=== PATIENT | male | born 1965 | race Caucasian/White ===

== ENCOUNTER → 2023-09-14 15:07 | Outpatient (CLI) | payer MEDICARE, MEDICAID, SELFPAY ==
--- NOTE | 2023-09-14 09:45 | DI.RAD_ITS ---
Exam(s) XR FOOT RT COMPLETE EXAM: XR FOOT RT COMPLETE CLINICAL HISTORY: Pain in right foot.hammertoe,m20.41. TECHNIQUE: 2D digital imaging was performed. Three views. COMPARISON: CR XR FOOT LT COMPLETE from 09/14/2023 FINDINGS: BONES: No acute fracture is present. No bony destructive lesion is seen. JOINTS: No dislocation present. Hammertoe deformity 2nd toe. Minimal degenerative changes. SOFT TISSUE: Normal. IMPRESSION: Hammertoe deformity 2nd toe. DATA REPOSITORY: RADIATION DOSE DELIVERED:
--- NOTE | 2023-09-14 09:45 | DI.RAD_ITS ---
Exam(s) XR FOOT LT COMPLETE EXAM: XR FOOT LT COMPLETE CLINICAL HISTORY: Pain in left foot,hammers toe, m20.42. TECHNIQUE: 2D digital imaging was performed. Three views. COMPARISON: No exams were available for comparison FINDINGS: BONES: No acute fracture is present. No bony destructive lesion is seen. JOINTS: No dislocation present. No significant degenerative changes. Mild hammertoe deformity of t he 2nd toe. SOFT TISSUE: Normal. IMPRESSION: Mild hammertoe deformity of the 2nd toe. DATA REPOSITORY: RADIATION DOSE DELIVERED:
--- OUTSIDE RECORDS SUMMARY | 2023-09-14 15:11 | XMS_ITS | Continuity of Care Document ---
Author Name Unknown Organization [facility] Address [address] [place] [address] Care Team Providers Care Metal Cut Off Saw Tender Name Role Phone Emily Stein Primary Care Physician [phone] Encounter [facility] Date(s): 08/25/22 - 08/25/22 [facility] [address] [place] [address] Discharge Disposition: Home or Self Care Attending Physician: Jose Alberto Goodwin Admitting Physician: Jose Alberto Goodwin Referring Physician: Jose Alberto Goodwin Allergies, Adverse Reactions, Alerts No Known Medication Allergies Assessment and Plan Future Appointments Future Scheduled Tests Laboratory* Lipid Panel 01/23/23 Immunizations Given and Recorded Vaccine Date Status Refusal Reason influenza virus vaccine, live 08/10/21 Recorded influenza virus vaccine, live 09/11/19 Recorded influenza virus vaccine, live 1 09/19/18 Recorded influenza virus vaccine, live 09/14/17 Recorded SARS-CoV-2 (COVID-19) mRNA-1273 vaccine 03/30/21 R ecorded SARS-CoV-2 (COVID-19) mRNA-1273 vaccine 02/28/21 R ecorded tetanus/diphth/pertuss (Tdap) adult/adol 2 11/27/19 Recorded tetanus/diphth/pertuss (Tdap) adult/adol 07/30/11 Recorded influenza virus vaccine, inactivated 09/28/16 Marlon rded influenza virus vaccine, inactivated 09/18/15 Marlon rded influenza virus vaccine, inactivated 09/14/13 Marlon rded influenza virus vaccine, inactivated 08/14/12 Marlon rded influenza virus vaccine, inactivated 08/27/11 Marlon rded influenza virus vaccine, inactivated 10/13/10 Marlon rded tetanus-diphth toxoids (Td) adult/adol 03/02/05 Re corded 1Result Comment: hospital supply 2Result Comment: skin cleansed Medications !-Augmentin 875 mg-125 mg oral tablet amoxicillin (as trihydrate) 1 tab, Oral, every 12 hr, # 14 tab, 0 Refill(s), Pharmacy: [facility] #58 Start Date: 05/18/22 Stop Date: 05/25/22 Status: Ordered acetaminophen 500 mg oral tablet 1,000 mg = 2 tab, TAKE TWO TABLETS BY MOUTH EVERY 8 HOURS NEEDED Start Date: 05/03/22 Status: Ordered Albuterol (Eqv-ProAir HFA) 90 mcg/inh inhalation aerosol INHALE TWO PUFFS BY MOUTH EVERY 4 HOURS Start Date: 05/03/22 Status: Ordered alfuzosin 10 mg oral tablet, extended release 10 mg = 1 tab, Oral, Daily, after meal, # 90 tab, 3 Refill(s), Pharmacy: [facility] #[facility] Start Date: 08/04/22 Status: Ordered alfuzosin 10 mg oral tablet, extended release TAKE ONE TABLET BY MOUTH EVERY DAY AFTER MEALS Start Date: 05/03/22 Status: Ordered amoxicillin 500 mg oral capsule TAKE ONE CAPSULE BY MOUTH EVERY 8 HOURS UNTIL GONE Start Date: 06/18/22 Status: Ordered aspirin 81 mg oral delayed release tablet 81 mg = 1 tab, Oral, Daily, # 30 tab, 0 Refill(s) Start Date: 05/03/22 Status: Ordered atorvastatin 40 mg oral tablet 40 mg = 1 tab, Oral, Daily, # 90 tab, 0 Refill(s), Pharmacy: [facility] #[facility] Start Date: 08/25/22 Status: Ordered Debrox 6.5% otic solution 5 drops, Ear-Both, BID, Instill 5 drops in affected ear(s) up to twice a day for 5 days to loosen wax, # 30 mL, 1 Refill(s), Pharmacy: [facility] #[facility] Start Date: 06/30/22 Status: Ordered diclofenac 1% topical gel See Instructions, APPLY 2 GRAMS TOPICALLY TO AFFECTED AREA(S) THREE TIMES A DAY NEEDED, # 100 g,3 Refill(s), Pharmacy: [facility] #[facility] Start Date: 07/19/22 Status: Ordered Enbrel SureClick 50 mg/mL subcutaneous solution 50 mg =, Subcutaneous, every week, # 3.92 mL, 0 Refill(s) Start Date: 05/03/22 Status: Ordered Flovent HFA 110 mcg/inh inhalation aerosol INHALE ONE PUFF BY MOUTH TWICE A DAY Start Date: 05/03/22 Status: Ordered folic acid 1 mg oral tablet 1 mg = 1 tab, Oral, Daily, TAKE ONE TABLET BY MOUTH EVERY DAY, # 90 tab, 3 Refill(s), Pharmacy: [facility] Start Date: 08/05/22 Status: Ordered HYDROcodone-acetaminophen 5 mg-325 mg oral tablet TAKE ONE TABLET BY MOUTH EVERY 6 HOURS NEEDED Start Date: 06/18/22 Status: Ordered ibuprofen 400 mg oral tablet TAKE ONE TABLET BY MOUTH EVERY 6 HOURS NEEDED Start Date: 05/03/22 Status: Ordered loratadine 10 mg oral tablet 10 mg = 1 tab, Oral, Daily, TAKE ONE TABLET BY MOUTH EVERY DAY, # 90 tab, 3 Refill(s), Pharmacy: [facility] Start Date: 08/04/22 Status: Ordered Myrbetriq 25 mg oral tablet, extended release TAKE ONE TABLET BY MOUTH EVERY DAY Start Date: 05/03/22 Status: Ordered Myrbetriq 50 mg oral tablet, extended release 50 mg = 1 tab, Oral, Daily, do not crush or chew, # 30 tab, 0 Refill(s) Start Date: 05/03/22 Status: Ordered omeprazole 40 mg oral delayed release capsule 1 cap, Oral, Daily, # 30 cap, 2 Refill(s), Pharmacy: [facility] #[facility] Start Date: 08/16/22 Status: Ordered Oyster Shell Calcium with Vitamin D 500 mg-5 mcg (200 intl units) oral tablet 1 tab, Oral, BID, # 60 tab, 3 Refill(s), Pharmacy: [facility] Start Date: 06/01/22 Status: Ordered traZODone 50 mg oral tablet 2 tab, Oral, every night at bedtime, PRN NEEDED, # 180 tab, 1 Refill(s), Pharmacy: [facility] Start Date: 08/05/22 Status: Ordered Problem List Condition Confirmation Course Effective Dates Status H ealth Status Informant Acquired hammer toe of right foot Confirmed Active Allergic rhinitis Confirmed Active Allergic rhinitis due to pollen Confirmed Active Anemia Confirmed Active Carpal tunnel syndrome of left wrist Confirmed Active Depressive disorder Confirmed Active Gastroesophageal reflux disease Confirmed Active Hyperlipidemia Confirmed Active Insomnia Confirmed Active Left knee pain Confirmed Active Migraine Confirmed Active Osteoarthritis Confirmed Active Overweight Confirmed Active Primary insomnia Confirmed Active Psoriasis Confirmed Active Thrombocytopenic disorder Confirmed Active Procedures Procedure Date Related Diagnosis Body Site Status Arthroscopy of knee 1 12/08/21 Com pleted Arthroscopy of knee 2 07/24/20 Com pleted orthopedic surgery 3 12/20/12 Comp leted Open carpal tunnel release 4 Completed Procedure on elbow Comple mari 1left 2R knee scope w/PLM 3Left hand hardware removal 5th metacarpal, 12/21/12 4bilateral Social History Social History Type Response Tobacco Never tobacco user T obacco Use:. Sex Male Patient Care team information Personnel Name: Emily Stein MD Address: Address: [facility] [place], [place] [address]
--- OUTSIDE RECORDS SUMMARY | 2023-09-14 15:11 | XMS_ITS | Continuity of Care Document ---
Author Name Unknown Organization [facility] Address [address] [place] [address] Care Team Providers Care Molded Goods Spot Picker Name Role Phone Emily Steni Primary Care Physician [phone] Encounter [facility] Date(s): 08/17/22 - 08/17/[address] [address] Discharge Disposition: Home or Self Care Attending Physician: Emily Stein MD Admitting Physician: Emily Stein MD Referring Physician: Emily Stein MD Allergies, Adverse Reactions, Alerts No Known Medication Allergies Assessment and Plan Future Appointments Immunizations Given and Recorded Vaccine Date Status [...] hr, # 14 tab, 0 Refill(s), Pharmacy: [facility] Start Date: 05/18/22 Stop Date: 05/25/22 [...] meal, # 90 tab, 3 Refill(s), Pharmacy: [facility] #58 Start Date: 08/04/22 Status: Ordered alfuzosin [...] 0 Refill(s) Start Date: 05/03/22 Status: Ordered Debrox 6.5% otic solution 5 drops, Ear-Both, BID, Instill 5 drops in affected ear(s) up to twice a day for 5 days to loosen wax, # 30 mL, 1 Refill(s), Pharmacy: [facility] #58 Start Date: 06/30/22 Status: Ordered diclofenac 1% topical gel See Instructions, APPLY 2 GRAMS TOPICALLY TO AFFECTED AREA(S) THREE TIMES A DAY NEEDED, # 100 g,3 Refill(s), Pharmacy: [facility] #58 Start Date: 07/19/22 Status: Ordered Enbrel [...] DAY, # 90 tab, 3 Refill(s), Pharmacy: [facility] #58 Start Date: 08/05/22 Status: Ordered HYDROcodone-acetaminophen [...] DAY, # 90 tab, 3 Refill(s), Pharmacy: [facility] #58 Start Date: 08/04/22 Status: Ordered Myrbetriq [...] Daily, # 30 cap, 2 Refill(s), Pharmacy: [facility] #58 Start Date: 08/16/22 Status: Ordered Oyster Shell Calcium with Vitamin D 500 mg-5 mcg (200 intl units) oral tablet 1 tab, Oral, BID, # 60 tab, 3 Refill(s), Pharmacy: [facility] #58 Start Date: 06/01/22 Status: Ordered traZODone 50 mg oral tablet 2 tab, Oral, every night at bedtime, PRN NEEDED, # 180 tab, 1 Refill(s), Pharmacy: [facility] #58 Start Date: 08/05/22 Status: Ordered Problem List Condition Effective Dates Status Health Status Inform ant Acquired hammer toe of right foot(Confirmed) Active Allergic rhinitis(Confirmed) Active Allergic rhinitis due to pollen(Confirmed) Active Anemia(Confirmed) Active Carpal tunnel syndrome of le ft wrist(Confirmed) Active Depressive disorder(Confirmed) Active Gastroesophageal reflux disease(Confirmed) Active Hyperlipidemia(Confirmed) Active Insomnia(Confirmed) Active Left knee pain(Confirmed) Active Migraine(Confirmed) Active Osteoarthritis(Confirmed) Active Overweight(Confirmed) Active Primary insomnia(Confirmed) Active Psoriasis(Confirmed) Active Thrombocytopenic disorder(Confirmed) Active Procedures Procedure Date Related Diagnosis Body Site Status Arthroscopy of knee 1 12/08/21 Com pleted Arthroscopy of knee 2 07/24/20 Com pleted orthopedic surgery 3 12/20/12 Comp leted Open carpal tunnel release 4 Completed Procedure on elbow Comple mari 1left 2R knee scope w/PLM 3Left hand hardware removal 5th metacarpal, 12/21/12 4bilateral Results Laboratory List Name Date Automated Diff 08/17/22 CBC w/ Diff 08/17/22 Comprehensive Metabolic Panel (CMP) 08/17 Lipid Panel 08/17/22 Most recent to oldest [Reference Range]: 1 WBC [5.0-10.0 x10^3/mcL] 5.8 x10^3/mcL (08/17/22 8:14 AM) RBC [4.6-6.0 x10^6/mcL] 4.7 x10^6/mcL (08/17/22 8:14 AM) Neutro Auto [40.0-75.0 %] 44.4 % (08/17/22 8:14 AM) Lymph Auto [20.0-50.0 %] 44.0 % (08/17/22 8:14 AM) George Auto [2.0-15.0 %] 9.2 % (08/17/22 8:14 AM) Basophil Auto [0.0-1.0 %] 0.5 % (08/17/22 8:14 AM) BUN [7-18 mg/dL] 16 mg/dL (08/17/22 8:14 AM) Cholesterol Total [50-200 mg/dL] 220 mg/ dL *HI* (08/17/22 8:14 AM) LDL [0-130 mg/dL] 157 mg/dL *HI* (08/17/22 8:14 AM) Glucose Level [74-106 mg/dL] 105 mg/dL (08/17/22 8:14 AM) Potassium Level [3.5-5.1 mmol/L] 4.0 mmo l/L (08/17/22 8:14 AM) MCV [80.0-103.0 fL] 89.7 fL (08/17/22 8:14 AM) HDL [40-60 mg/dL] 47 mg/dL (08/17/22 8:14 AM) AST [15-37 unit/L] 20 unit/L (08/17/22 8:14 AM) ALT [14-59 unit/L] 27 unit/L (08/17/22 8:14 AM) MCHC [31.0-35.0 g/dL] 33.2 g/dL (08/17/22 8:14 AM) Sodium Level [136-145 mmol/L] 137 mmol/L (08/17/22 8:14 AM) Hct [41.0-51.0 %] 41.9 % (08/17/22 8:14 AM) Triglycerides [0-150 mg/dL] 82 mg/dL (08/17/22 8:14 AM) Calcium Level [8.5-10.1 mg/dL] 9.5 mg/dL (08/17/22 8:14 AM) Albumin Level [3.4-5.0 g/dL] 4.2 g/dL (08/17/22 8:14 AM) Protein Total [6.4-8.2 g/dL] 8.2 g/dL (08/17/22 8:14 AM) MCH [26.0-32.0 pg] 29.8 pg (08/17/22 8:14 AM) Neutro Absolute 2.6 x10^3/mcL *NA* (08/17/22 8:14 AM) Bilirubin Total [0.2-1.0 mg/dL] 0.7 mg/d L (08/17/22 8:14 AM) Hgb [14.0-18.0 g/dL] 13.9 g/dL *LOW* (08/17/22 8:14 AM) Alk Phos [46-146 unit/L] 57 unit/L (08/17/22 8:14 AM) Platelets [130-450 x10^3/mcL] 114 x10^3/ mcL *LOW* (08/17/22 8:14 AM) CO2 [21-32 mmol/L] 28 mmol/L (08/17/22 8:14 AM) eGFR Non-AA [>=60] 87 (08/17/22 8:14 AM) eGFR AA [>=60] 87 (08/17/22 8:14 AM) Chloride Level [98-107 mmol/L] 102 mmol/ L (08/17/22 8:14 AM) RDW-CV [11.5-17.0 %] 13.3 % (08/17/22 8:14 AM) Imm Gran Auto [0.0-0.9 %] 0.2 % (08/17/22 8:14 AM) Creatinine Level [0.70-1.30 mg/dL] 1.01 mg/dL (08/17/22 8:14 AM) Anion Gap [8-16 mmol/L] 7 mmol/L *LOW* (08/17/22 8:14 AM) Eos, Auto [1.0-6.0 %] 1.7 % (08/17/22 8:14 AM) Social History Social History Type Response Tobacco Never tobacco user T obacco Use:. Sex Male Patient Care team information Personnel Name: Emily Stein MD Address: Address: [place], [place] [address]
--- OUTSIDE RECORDS SUMMARY | 2023-09-14 15:11 | XMS_ITS | Continuity of Care Document ---
Author Name Unknown Organization [facility] Address [address] [place] [address] Care Team Providers Care Private Investigator Surveillance Name Role Phone Emily Stein Primary Care Physician [phone] Encounter [facility] Date(s): 04/27/23 - 04/27/23 [facility] [address] [place] [address] Discharge Disposition: Home Allergies, Adverse Reactions, Alerts No Known Medication [...] hospital supply 2Result Comment: skin cleansed Medications acetaminophen 500 mg oral tablet 1,000 mg = 2 tab, TAKE TWO TABLETS BY MOUTH EVERY 8 HOURS NEEDED Start Date: 05/03/22 Status: Ordered Albuterol (Eqv-ProAir HFA) 90 mcg/inh inhalation aerosol 2 puffs, Inhale, every 4 hr, PRN as needed for wheezing, INHALE TWO PUFFS BY MOUTH EVERY 4 HOURS, #8.5 g, 3 Refill(s), Pharmacy: [facility] #58 Start Date: 04/04/23 Status: Ordered alfuzosin 10 mg oral tablet, extended release 10 mg = 1 tab, Oral, Daily, after meal, # 90 tab, 3 Refill(s), Pharmacy: [facility] #58 Start Date: 08/04/22 Status: Ordered alfuzosin 10 mg oral tablet, extended release TAKE ONE TABLET BY MOUTH EVERY DAY AFTER MEALS Start Date: 05/03/22 Status: Ordered aspirin 81 mg oral delayed release tablet 81 mg = 1 tab, Oral, Daily, # 30 tab, 0 Refill(s) Start Date: 05/03/22 Status: Ordered atorvastatin 40 mg oral tablet 40 mg = 1 tab, Oral, Daily, # 90 tab, 3 Refill(s), Pharmacy: [facility] #58 Start Date: 11/01/22 Status: Ordered benzonatate 100 mg oral capsule 100 mg = 1 cap, Oral, BID, # 20 cap, 0 Refill(s), Pharmacy: [facility] #58 Start Date: 02/08/23 Stop Date: 02/18/23 Status: Ordered Ciprodex 0.3%-0.1% otic suspension 4 drops, Ear-Both, BID, # 7.5 mL, 0 Refill(s), Pharmacy: [facility] #58 Start Date: 12/01/22 Stop Date: 12/08/22 Status: Ordered Debrox 6.5% otic solution 5 drops, Ear-Both, BID, Instill 5 drops in affected ear(s) up to twice a day for 5 days to loosen wax, # 30 mL, 1 Refill(s), Pharmacy: [facility] #58 Start Date: 06/30/22 Status: Ordered diclofenac 1% topical gel 2 g, Topical, TID, PRN NEEDED, # 100 g, 6 Refill(s), Pharmacy: [facility] #58 Start Date: 02/28/23 Status: Ordered Enbrel SureClick 50 mg/mL subcutaneous solution 50 mg =, Subcutaneous, every week, # 3.92 mL, 0 Refill(s) Start Date: 05/03/22 Status: Ordered Flovent HFA 110 mcg/inh inhalation aerosol 1 puffs, Inhale, BID, # 36 g, 2 Refill(s), Pharmacy: [facility] #58 Start Date: 12/16/22 Status: Ordered folic acid 1 mg oral tablet 1 mg = 1 tab, Oral, Daily, TAKE ONE TABLET BY MOUTH EVERY DAY, # 90 tab, 3 Refill(s), Pharmacy: [facility]58 Start Date: 08/05/22 Status: Ordered HYDROcodone-acetaminophen [...] DAY, # 90 tab, 3 Refill(s), Pharmacy: [facility] #58 Start Date: 08/04/22 Status: Ordered Myrbetriq [...] release capsule 1 cap, Oral, Daily, # 90 cap, 2 Refill(s), Pharmacy: [facility] #58 Start Date: 11/01/22 Status: Ordered Oyster Shell Calcium with Vitamin D 500 mg-5 mcg (200 intl units) oral tablet 1 tab, Oral, BID, # 60 tab, 3 Refill(s), Pharmacy: [facility]58 Start Date: 02/04/23 Status: Ordered traZODone 50 mg oral tablet 2 tab, Oral, every night at bedtime, PRN NEEDED, # 180 tab, 1 Refill(s), Pharmacy: [facility] #58 Start Date: 01/24/23 Status: Ordered Zithromax Z-Sim 250 mg oral tablet 1 packets, Oral, Daily, Take 2 tablets on day 1 and 1 tablet days 2 through 5 with a quantity of 6., # 6 tab, 0 Refill(s), Pharmacy: [facility] #58 Start Date: 02/08/23 Stop Date: 02/13/23 Status: Ordered Problem List Condition Confirmation Course Effective Dates Status H ealth Status Informant Acquired hammer toe of right foot Confirmed Active Allergic rhinitis Confirmed Active Allergic rhinitis due to pollen Confirmed Active Anemia Confirmed Active Carpal tunnel syndrome of left wrist Confirmed Active Depressive disorder Confirmed Active Foot pain Confirmed Active Gastroesophageal reflux disease Confirmed Active Hyperlipidemia Confirmed Active Insomnia Confirmed Active Left knee pain Confirmed Active Migraine Confirmed Active Osteoarthritis Confirmed Active DJD (degenerative joint disease) of knee Confirmed Active Overweight Confirmed Active Bilateral knee pain Confirmed Active Primary insomnia Confirmed Active Psoriasis [...] Use:. Sex Male Patient Care team information Care Team Personnel Name: Emily Stein MD Position: Physician Member Role: Primary Care Physician Address: Address: [facility] [place] [address]- Care Team Related Persons Name: ERNESTO WEST Address: Home Name: CHARLIE WEST Address: Home Name: SYDNEY WEST Address: [place]
--- OUTSIDE RECORDS SUMMARY | 2023-09-14 15:11 | XMS_ITS | Continuity of Care Document ---
Author Name Unknown Organization [facility] Address [address] [place] [address] Care Team Providers Care Batterboard Setter Name Role Phone Emily Stein Primary Care Physician [phone] Encounter [facility] Date(s): 10/21/22 - 10/21/[address] [address] [place] Encounter Diagnosis Foot pain, left(Discharge Diagnosis) - 10/21/22 Left foot pain(Discharge Diagnosis) - 10/21/22 Discharge Disposition: Home or Self Care Attending Physician: Manasa Taylor PA-C Admitting Physician: Manasa Taylor PA-C Referring Physician: Manasa Taylor PA-C Allergies, Adverse Reactions, Alerts No Known Medication [...] hr, # 14 tab, 0 Refill(s), Pharmacy: [facility] Start Date: 05/18/22 Stop Date: 05/25/22 [...] meal, # 90 tab, 3 Refill(s), Pharmacy: [facility] Start Date: 08/04/22 Status: Ordered alfuzosin [...] Daily, # 90 tab, 0 Refill(s), Pharmacy: [facility]58 Start Date: 08/25/22 Status: Ordered Debrox 6.5% otic solution 5 drops, Ear-Both, BID, Instill 5 drops in affected ear(s) up to twice a day for 5 days to loosen wax, # 30 mL, 1 Refill(s), Pharmacy: [facility] #58 Start Date: 06/30/22 Status: Ordered diclofenac 1% topical gel See Instructions, APPLY 2 GRAMS TOPICALLY TO AFFECTED AREA(S) THREE TIMES A DAY NEEDED, # 100 g,3 Refill(s), Pharmacy: [facility]58 Start Date: 07/19/22 Status: Ordered Enbrel [...] DAY, # 90 tab, 3 Refill(s), Pharmacy: [facility]58 Start Date: 08/05/22 Status: Ordered HYDROcodone-acetaminophen [...] DAY, # 90 tab, 3 Refill(s), Pharmacy: [facility]58 Start Date: 08/04/22 Status: Ordered meloxicam 7.5 mg oral tablet 7.5 mg = 1 tab, Oral, Daily, Take one Tablet, once a day., # 30 tab, 0 Refill(s), Pharmacy: [facility]58 Start Date: 10/21/22 Status: Ordered Myrbetriq 25 mg oral tablet, [...] Daily, # 30 cap, 2 Refill(s), Pharmacy: [facility]58 Start Date: 08/16/22 Status: Ordered Oyster Shell Calcium with Vitamin D 500 mg-5 mcg (200 intl units) oral tablet 1 tab, Oral, BID, # 60 tab, 3 Refill(s), Pharmacy: [facility]58 Start Date: 10/11/22 Status: Ordered traZODone 50 mg oral tablet 2 tab, Oral, every night at bedtime, PRN NEEDED, # 180 tab, 1 Refill(s), Pharmacy: [facility]58 Start Date: 08/05/22 Status: Ordered Problem [...] Active Osteoarthritis Confirmed Active Overweight Confirmed Active Bilateral knee [...] Personnel Name: Emily Stein MD Address: Address: [place], [place] [address]
--- OUTSIDE RECORDS SUMMARY | 2023-09-14 15:11 | XMS_ITS | Continuity of Care Document ---
Author Name Unknown Organization [facility] Address [address] [place] [address] Care Team Providers Care Parachute Rigger Name Role Phone Emily Stein Primary Care Physician [phone] Encounter [facility] Date(s): 04/28/23 - 04/28/[address] [address] Encounter Diagnosis Bruising(Discharge Diagnosis) - 04/28/23 Discharge Disposition: Home or Self Care Attending [...] 4 HOURS, #8.5 g, 3 Refill(s), Pharmacy: [facility] Start Date: 04/04/23 Status: Ordered alfuzosin 10 mg oral tablet, extended release 10 mg = 1 tab, Oral, Daily, after meal, # 90 tab, 3 Refill(s), Pharmacy: [facility] Start Date: 08/04/22 Status: Ordered alfuzosin [...] Daily, # 90 tab, 3 Refill(s), Pharmacy: [facility] Start Date: 11/01/22 Status: Ordered benzonatate 100 mg oral capsule 100 mg = 1 cap, Oral, BID, # 20 cap, 0 Refill(s), Pharmacy: [facility] Start Date: 02/08/23 Stop Date: 02/18/23 Status: Ordered Ciprodex 0.3%-0.1% otic suspension 4 drops, Ear-Both, BID, # 7.5 mL, 0 Refill(s), Pharmacy: [facility] Start Date: 12/01/22 Stop Date: 12/08/22 Status: Ordered Debrox 6.5% otic solution 5 drops, Ear-Both, BID, Instill 5 drops in affected ear(s) up to twice a day for 5 days to loosen wax, # 30 mL, 1 Refill(s), Pharmacy: [facility] Start Date: 06/30/22 Status: Ordered diclofenac 1% topical gel 2 g, Topical, TID, PRN NEEDED, # 100 g, 6 Refill(s), Pharmacy: [facility] Start Date: 02/28/23 Status: Ordered Enbrel SureClick 50 mg/mL subcutaneous solution 50 mg =, Subcutaneous, every week, # 3.92 mL, 0 Refill(s) Start Date: 05/03/22 Status: Ordered Flovent HFA 110 mcg/inh inhalation aerosol 1 puffs, Inhale, BID, # 36 g, 2 Refill(s), Pharmacy: [facility] Start Date: 12/16/22 Status: Ordered folic acid 1 mg oral tablet 1 mg = 1 tab, Oral, Daily, TAKE ONE TABLET BY MOUTH EVERY DAY, # 90 tab, 3 Refill(s), Pharmacy: [facility] Start Date: 08/05/22 Status: Ordered HYDROcodone-acetaminophen [...] DAY, # 90 tab, 3 Refill(s), Pharmacy: [facility] Start Date: 08/04/22 Status: Ordered Myrbetriq 25 mg oral tablet, extended release TAKE ONE TABLET BY MOUTH EVERY DAY Start Date: 05/03/22 Status: Ordered Myrbetriq 50 mg oral tablet, extended release See Instructions, TAKE ONE TABLET BY MOUTH EVERY DAY, # 90 tab, 3 Refill(s), Pharmacy: [facility] Start Date: 04/29/23 Status: Ordered Myrbetriq 50 mg oral tablet, extended release 50 mg = 1 tab, Oral, Daily, do not crush or chew, # 30 tab, 0 Refill(s) Start Date: 05/03/22 Status: Ordered omeprazole 40 mg oral delayed release capsule 1 cap, Oral, Daily, # 90 cap, 2 Refill(s), Pharmacy: [facility] Start Date: 11/01/22 Status: Ordered Oyster Shell Calcium with Vitamin D 500 mg-5 mcg (200 intl units) oral tablet 1 tab, Oral, BID, # 60 tab, 3 Refill(s), Pharmacy: [facility] Start Date: 02/04/23 Status: Ordered traZODone 50 mg oral tablet 2 tab, Oral, every night at bedtime, PRN NEEDED, # 180 tab, 1 Refill(s), Pharmacy: [facility] Start Date: 01/24/23 Status: Ordered Zithromax Z-Sim 250 mg oral tablet 1 packets, Oral, Daily, Take 2 tablets on day 1 and 1 tablet days 2 through 5 with a quantity of 6., # 6 tab, 0 Refill(s), Pharmacy: [facility] Start Date: 02/08/23 Stop Date: 02/13/23 [...] Member Role: Primary Care Physician Address: Address: [place] [address] [place] Care Team Related Persons Name: ERNESTO WEST Address: Home Name: CHARLIE WEST Address: Home Name: SYDNEY WEST Address: Home
--- OUTSIDE RECORDS SUMMARY | 2023-09-14 15:11 | XMS_ITS | Continuity of Care Document ---
Author Name Unknown Organization [facility] Address [address] [place] [address] Care Team Providers Care Poultry Dresser Name Role Phone Emily Stein Primary Care Physician Encounter [facility] Date(s): 10/27/22 - 10/27/[address] [address] Discharge Disposition: Home or Self Care Attending [...] hr, # 14 tab, 0 Refill(s), Pharmacy: [facility] Start Date: 05/18/22 Stop Date: 05/25/22 [...] meal, # 90 tab, 3 Refill(s), Pharmacy: [facility] Start Date: 08/04/22 Status: Ordered alfuzosin [...] Daily, # 90 tab, 0 Refill(s), Pharmacy: [facility] Start Date: 08/25/22 Status: Ordered Debrox 6.5% otic solution 5 drops, Ear-Both, BID, Instill 5 drops in affected ear(s) up to twice a day for 5 days to loosen wax, # 30 mL, 1 Refill(s), Pharmacy: [facility] #58 Start Date: 06/30/22 Status: Ordered diclofenac 1% topical gel See Instructions, APPLY 2 GRAMS TOPICALLY TO AFFECTED AREA(S) THREE TIMES A DAY NEEDED, # 100 g,3 Refill(s), Pharmacy: [facility] #58 Start Date: 07/19/22 Status: Ordered Enbrel [...] DAY, # 90 tab, 3 Refill(s), Pharmacy: [facility]58 Start Date: 08/05/22 Status: Ordered HYDROcodone-acetaminophen [...] DAY, # 90 tab, 3 Refill(s), Pharmacy: [facility] Start Date: 08/04/22 Status: Ordered meloxicam 7.5 mg oral tablet 7.5 mg = 1 tab, Oral, Daily, Take one Tablet, once a day., # 30 tab, 0 Refill(s), Pharmacy: [facility]58 Start Date: 10/21/22 Status: Ordered Myrbetriq [...] Daily, # 30 cap, 2 Refill(s), Pharmacy: [facility]58 Start Date: 08/16/22 Status: Ordered Oyster Shell Calcium with Vitamin D 500 mg-5 mcg (200 intl units) oral tablet 1 tab, Oral, BID, # 60 tab, 3 Refill(s), Pharmacy: [facility]58 Start Date: 10/11/22 Status: Ordered traZODone 50 mg oral tablet 2 tab, Oral, every night at bedtime, PRN NEEDED, # 180 tab, 1 Refill(s), Pharmacy: [facility] #58 Start Date: 08/05/22 Status: Ordered Problem [...] Results Laboratory List Name Date Automated Diff 10/27/22 CBC w/ Diff 10/27/22 Comprehensive Metabolic Panel (CMP) 10/27 Most recent to oldest [Reference Range]: 1 WBC [5.0-10.0 x10^3/mcL] 5.7 x10^3/mcL (10/27/22 8:06 AM) RBC [4.6-6.0 x10^6/mcL] 4.6 x10^6/mcL (10/27/22 8:06 AM) Neutro Auto [40.0-75.0 %] 50.7 % (10/27/22 8:06 AM) Lymph Auto [20.0-50.0 %] 37.3 % (10/27/22 8:06 AM) Mcduffie Auto [2.0-15.0 %] 9.4 % (10/27/22 8:06 AM) Basophil Auto [0.0-1.0 %] 0.3 % (10/27/22 8:06 AM) BUN [7-18 mg/dL] 19 mg/dL *HI* (10/27/22 8:06 AM) Glucose Level [74-106 mg/dL] 98 mg/dL (10/27/22 8:06 AM) Potassium Level [3.5-5.1 mmol/L] 4.3 mmo l/L (10/27/22 8:06 AM) MCV [80.0-96.0] 92.0 (10/27/22 8:06 AM) AST [15-37 unit/L] 24 unit/L (10/27/22 8:06 AM) ALT [16-63 unit/L] 36 unit/L (10/27/22 8:06 AM) MCHC [31.0-35.0 g/dL] 32.4 g/dL (10/27/22 8:06 AM) Sodium Level [136-145 mmol/L] 139 mmol/L (10/27/22 8:06 AM) Hct [41.0-51.0 %] 42.6 % (10/27/22 8:06 AM) Calcium Level [8.5-10.1 mg/dL] 9.5 mg/dL (10/27/22 8:06 AM) Albumin Level [3.4-5.0 g/dL] 4.3 g/dL (10/27/22 8:06 AM) Protein Total [6.4-8.2 g/dL] 8.1 g/dL (10/27/22 8:06 AM) MCH [26.0-32.0 pg] 29.8 pg (10/27/22 8:06 AM) Neutro Absolute 2.9 x10^3/mcL *NA* (10/27/22 8:06 AM) Bilirubin Total [0.2-1.0 mg/dL] 0.7 mg/d L (10/27/22 8:06 AM) Hgb [14.0-18.0 g/dL] 13.8 g/dL *LOW* (10/27/22 8:06 AM) Alk Phos [46-146 unit/L] 62 unit/L (10/27/22 8:06 AM) Platelets [130-450 x10^3/mcL] 93 x10^3/m cL *LOW* (10/27/22 8:06 AM) CO2 [21-32 mmol/L] 30 mmol/L (10/27/22 8:06 AM) eGFR Non-AA [>=60] 71 (10/27/22 8:06 AM) eGFR AA [>=60] 71 (10/27/22 8:06 AM) Chloride Level [98-107 mmol/L] 101 mmol/ L (10/27/22 8:06 AM) RDW-CV [11.5-17.0 %] 13.4 % (10/27/22 8:06 AM) Imm Gran Auto [0.0-0.9 %] 0.2 % (10/27/22 8:06 AM) Creatinine Level [0.70-1.30 mg/dL] 1.20 mg/dL (10/27/22 8:06 AM) Eos, Auto [1.0-6.0 %] 2.1 % (10/27/22 8:06 AM) Social History Social History Type Response Tobacco Never tobacco user T obacco Use:. Sex Male Patient Care team information Personnel Name: Emily Stein MD Address: Address: [place] [facility] [place], [place] [address]
--- OUTSIDE RECORDS SUMMARY | 2023-09-14 15:11 | XMS_ITS | Continuity of Care Document ---
Author Name Unknown Organization [facility] Address [address] [place] [address] Care Team Providers Care Catalogue Clerk Name Role Phone Emily Stein Primary Care Physician Encounter [facility] Date(s): 02/07/23 - 02/07/[address] [address] Discharge Disposition: Home or Self Care Attending Physician: Zain Mays III, MD Admitting Physician: Zain Mays III, MD Referring Physician: Zain Mays III, MD Allergies, Adverse Reactions, Alerts No Known Medication Allergies Assessment and Plan Future Appointments Diagnostic Tests Pending * QuantiFERON-TB Gold Plus, [facility] 02/07/23 Immunizations Given and Recorded Vaccine Date Status [...] 4 HOURS, #8.5 g, 3 Refill(s), Pharmacy: [facility] Start Date: 02/07/23 Status: Ordered alfuzosin 10 mg oral tablet, extended release 10 mg = 1 tab, Oral, Daily, after meal, # 90 tab, 3 Refill(s), Pharmacy: [facility] Start Date: 08/04/22 Status: Ordered alfuzosin [...] Daily, # 90 tab, 3 Refill(s), Pharmacy: [facility] Start Date: 11/01/22 Status: Ordered benzonatate 100 mg oral capsule 100 mg = 1 cap, Oral, BID, # 20 cap, 0 Refill(s), Pharmacy: [facility] Start Date: 02/08/23 Stop Date: 02/18/23 Status: Ordered Ciprodex 0.3%-0.1% otic suspension 4 drops, Ear-Both, BID, # 7.5 mL, 0 Refill(s), Pharmacy: [facility] Start Date: 12/01/22 Stop Date: 12/08/22 Status: Ordered Debrox 6.5% otic solution 5 drops, Ear-Both, BID, Instill 5 drops in affected ear(s) up to twice a day for 5 days to loosen wax, # 30 mL, 1 Refill(s), Pharmacy: [facility] Start Date: 06/30/22 Status: Ordered diclofenac 1% topical gel See Instructions, APPLY 2 GRAMS TOPICALLY TO AFFECTED AREA(S) THREE TIMES A DAY NEEDED, # 100 g,3 Refill(s), Pharmacy: [facility] Start Date: 11/01/22 Status: Ordered Enbrel SureClick 50 mg/mL subcutaneous solution 50 mg =, Subcutaneous, every week, # 3.92 mL, 0 Refill(s) Start Date: 05/03/22 Status: Ordered Flovent HFA 110 mcg/inh inhalation aerosol 1 puffs, Inhale, BID, # 36 g, 2 Refill(s), Pharmacy: [facility] Start Date: 12/16/22 Status: Ordered folic acid 1 mg oral tablet 1 mg = 1 tab, Oral, Daily, TAKE ONE TABLET BY MOUTH EVERY DAY, # 90 tab, 3 Refill(s), Pharmacy: [facility] Start Date: 08/05/22 Status: Ordered HYDROcodone-acetaminophen [...] DAY, # 90 tab, 3 Refill(s), Pharmacy: [facility] Start Date: 08/04/22 Status: Ordered meloxicam 7.5 mg oral tablet 1 tab, Oral, Daily, # 30 tab, 0 Refill(s), Pharmacy: [facility] Start Date: 11/16/22 Status: Ordered meloxicam 7.5 mg oral tablet 7.5 mg = 1 tab, Oral, Daily, # 30 tab, 1 Refill(s), Pharmacy: [facility] Start Date: 11/26/22 Status: Ordered Myrbetriq 25 mg oral tablet, [...] Daily, # 90 cap, 2 Refill(s), Pharmacy: [facility] Start Date: 11/01/22 Status: Ordered Oyster Shell Calcium with Vitamin D 500 mg-5 mcg (200 intl units) oral tablet 1 tab, Oral, BID, # 60 tab, 3 Refill(s), Pharmacy: [facility] Start Date: 02/04/23 Status: Ordered traZODone 50 mg oral tablet 2 tab, Oral, every night at bedtime, PRN NEEDED, # 180 tab, 1 Refill(s), Pharmacy: [facility] Start Date: 01/24/23 Status: Ordered Zithromax Z-Sim 250 mg oral tablet 1 packets, Oral, Daily, Take 2 tablets on day 1 and 1 tablet days 2 through 5 with a quantity of 6., # 6 tab, 0 Refill(s), Pharmacy: [facility] Start Date: 02/08/23 Stop Date: 02/13/23 [...] Member Role: Primary Care Physician Address: Address: [place] [facility] [address] Care Team Related Persons Name: ERNESTO WEST Address: Home Name: CHARLIE WEST Address: Home Name: SYDNEY WEST
--- OUTSIDE RECORDS SUMMARY | 2023-09-14 15:11 | XMS_ITS | Continuity of Care Document ---
Author Name Unknown Organization [facility] Address [address] [place] [address] Care Team Providers Care Wet Primer Powder Blender Name Role Phone Emily Stein Primary Care Physician [phone] Encounter [facility] Date(s): 04/01/23 - 04/01/[address] [address] Discharge Disposition: Home or Self Care Attending Physician: Manasa Taylor PA-C Admitting Physician: Manasa Taylor PA-C Referring Physician: Manasa Taylor PA-C Allergies, Adverse Reactions, Alerts No Known Medication Allergies Assessment and Plan Future Appointments Diagnostic Tests Pending * Lyme Antibody [facility] 04/01/23 Immunizations Given and Recorded Vaccine Date Status [...] 4 HOURS, #8.5 g, 3 Refill(s), Pharmacy: [facility] Start Date: 02/07/23 Status: Ordered alfuzosin 10 mg oral tablet, extended release 10 mg = 1 tab, Oral, Daily, after meal, # 90 tab, 3 Refill(s), Pharmacy: [facility]58 Start Date: 08/04/22 Status: Ordered alfuzosin [...] Daily, # 90 tab, 3 Refill(s), Pharmacy: [facility]58 Start Date: 11/01/22 Status: Ordered benzonatate 100 mg oral capsule 100 mg = 1 cap, Oral, BID, # 20 cap, 0 Refill(s), Pharmacy: [facility]58 Start Date: 02/08/23 Stop Date: 02/18/23 Status: Ordered Ciprodex 0.3%-0.1% otic suspension 4 drops, Ear-Both, BID, # 7.5 mL, 0 Refill(s), Pharmacy: [facility]58 Start Date: 12/01/22 Stop Date: 12/08/22 Status: Ordered Debrox 6.5% otic solution 5 drops, Ear-Both, BID, Instill 5 drops in affected ear(s) up to twice a day for 5 days to loosen wax, # 30 mL, 1 Refill(s), Pharmacy: [facility] #58 Start Date: 06/30/22 Status: Ordered diclofenac 1% topical gel 2 g, Topical, TID, PRN NEEDED, # 100 g, 6 Refill(s), Pharmacy: [facility] #58 Start Date: 02/28/23 Status: Ordered Enbrel SureClick 50 mg/mL subcutaneous solution 50 mg =, Subcutaneous, every week, # 3.92 mL, 0 Refill(s) Start Date: 05/03/22 Status: Ordered Flovent HFA 110 mcg/inh inhalation aerosol 1 puffs, Inhale, BID, # 36 g, 2 Refill(s), Pharmacy: [facility]58 Start Date: 12/16/22 Status: Ordered folic acid 1 mg oral tablet 1 mg = 1 tab, Oral, Daily, TAKE ONE TABLET BY MOUTH EVERY DAY, # 90 tab, 3 Refill(s), Pharmacy: [facility]58 Start Date: 08/05/22 Status: Ordered HYDROcodone-acetaminophen [...] DAY, # 90 tab, 3 Refill(s), Pharmacy: [facility]58 Start Date: 08/04/22 Status: Ordered Myrbetriq [...] Daily, # 90 cap, 2 Refill(s), Pharmacy: [facility]58 Start Date: 11/01/22 Status: Ordered Oyster Shell Calcium with Vitamin D 500 mg-5 mcg (200 intl units) oral tablet 1 tab, Oral, BID, # 60 tab, 3 Refill(s), Pharmacy: [facility]58 Start Date: 02/04/23 Status: Ordered traZODone 50 mg oral tablet 2 tab, Oral, every night at bedtime, PRN NEEDED, # 180 tab, 1 Refill(s), Pharmacy: [facility]58 Start Date: 01/24/23 Status: Ordered Zithromax Z-Sim 250 mg oral tablet 1 packets, Oral, Daily, Take 2 tablets on day 1 and 1 tablet days 2 through 5 with a quantity of 6., # 6 tab, 0 Refill(s), Pharmacy: [facility]58 Start Date: 02/08/23 Stop Date: 02/13/23 [...] Member Role: Primary Care Physician Address: Address: [place] [address]- Care Team Related Persons Name: ERNESTO WEST Address: Home Name: CHARLIE WEST Address: Home Name: SYDNEY WEST
--- OUTSIDE RECORDS SUMMARY | 2023-09-14 15:11 | XMS_ITS | Continuity of Care Document ---
Author Name Unknown Organization [facility] Address [address] [place] [address] Care Team Providers Care Etl Consultant Name Role Phone Emily Stein Primary Care Physician [phone] Encounter [facility] Date(s): 02/16/23 - 02/16/[address] [address] Discharge Disposition: Home or Self Care Attending Physician: Shady Kim MD Admitting Physician: Shady Kim MD Referring Physician: Shady Kim MD Allergies, Adverse Reactions, Alerts No Known [...] 4 HOURS, #8.5 g, 3 Refill(s), Pharmacy: [facility] Start Date: 02/07/23 Status: Ordered alfuzosin 10 mg oral tablet, extended release 10 mg = 1 tab, Oral, Daily, after meal, # 90 tab, 3 Refill(s), Pharmacy: [facility]58 Start Date: 08/04/22 Status: Ordered alfuzosin [...] Daily, # 90 tab, 3 Refill(s), Pharmacy: [facility] Start Date: 11/01/22 Status: Ordered benzonatate 100 mg oral capsule 100 mg = 1 cap, Oral, BID, # 20 cap, 0 Refill(s), Pharmacy: [facility]58 Start Date: 02/08/23 Stop Date: 02/18/23 Status: Ordered Ciprodex 0.3%-0.1% otic suspension 4 drops, Ear-Both, BID, # 7.5 mL, 0 Refill(s), Pharmacy: [facility]58 Start Date: 12/01/22 Stop Date: 12/08/22 Status: Ordered Debrox 6.5% otic solution 5 drops, Ear-Both, BID, Instill 5 drops in affected ear(s) up to twice a day for 5 days to loosen wax, # 30 mL, 1 Refill(s), Pharmacy: [facility]58 Start Date: 06/30/22 Status: Ordered diclofenac 1% topical gel See Instructions, APPLY 2 GRAMS TOPICALLY TO AFFECTED AREA(S) THREE TIMES A DAY NEEDED, # 100 g,3 Refill(s), Pharmacy: [facility]58 Start Date: 11/01/22 Status: Ordered Enbrel SureClick 50 mg/mL subcutaneous solution 50 mg =, Subcutaneous, every week, # 3.92 mL, 0 Refill(s) Start Date: 05/03/22 Status: Ordered Flovent HFA 110 mcg/inh inhalation aerosol 1 puffs, Inhale, BID, # 36 g, 2 Refill(s), Pharmacy: [facility]58 Start Date: 12/16/22 Status: Ordered folic acid 1 mg oral tablet 1 mg = 1 tab, Oral, Daily, TAKE ONE TABLET BY MOUTH EVERY DAY, # 90 tab, 3 Refill(s), Pharmacy: [facility]58 Start Date: 08/05/22 Status: Ordered HYDROcodone-acetaminophen [...] DAY, # 90 tab, 3 Refill(s), Pharmacy: [facility] Start Date: 08/04/22 Status: Ordered meloxicam 7.5 mg oral tablet 1 tab, Oral, Daily, # 30 tab, 0 Refill(s), Pharmacy: [facility] Start Date: 11/16/22 Status: Ordered meloxicam 7.5 mg oral tablet 7.5 mg = 1 tab, Oral, Daily, # 30 tab, 1 Refill(s), Pharmacy: [facility] Start Date: 02/14/23 Status: Ordered Myrbetriq 25 mg oral tablet, [...] Daily, # 90 cap, 2 Refill(s), Pharmacy: [facility]58 Start Date: 11/01/22 Status: Ordered Oyster Shell Calcium with Vitamin D 500 mg-5 mcg (200 intl units) oral tablet 1 tab, Oral, BID, # 60 tab, 3 Refill(s), Pharmacy: [facility]58 Start Date: 02/04/23 Status: Ordered traZODone 50 mg oral tablet 2 tab, Oral, every night at bedtime, PRN NEEDED, # 180 tab, 1 Refill(s), Pharmacy: [facility]58 Start Date: 01/24/23 Status: Ordered Zithromax Z-Sim 250 mg oral tablet 1 packets, Oral, Daily, Take 2 tablets on day 1 and 1 tablet days 2 through 5 with a quantity of 6., # 6 tab, 0 Refill(s), Pharmacy: [facility]58 Start Date: 02/08/23 Stop Date: 02/13/23 [...] 12/21/12 4bilateral Results Laboratory List Name Date PSA Screen 02/16/23 Most recent to oldest [Reference Range]: 1 PSA Total Screening [0.00-4.00 ng/mL] 0. 44 ng/mL (02/16/23 12:35 PM) Social History Social History Type Response Tobacco Never tobacco user T obacco Use:. Sex Male Patient Care team information Care Team Personnel Name: Emily Stein MD Position: Physician Member Role: Primary Care Physician Address: Address: [place] [address]- [place] Care Team Related Persons Name: ERNESTO WEST Address: Home Name: CHARLIE WEST Address: Home Name: SYDNEY WEST
--- OUTSIDE RECORDS SUMMARY | 2023-09-14 15:11 | XMS_ITS | Continuity of Care Document ---
Author Name Unknown Organization [facility] Address [address] [place] [address] Encounter [facility]_[place] FIN NBR [id number] Date(s): 02/04/23 - 02/04/23 [facility] [address] [place], [place] [address] Discharge Disposition: Home or Self Care Attending Physician: CEFERINO ALLISON Admitting Physician: CEFERINO ALLISON Referring Physician: CEFERINO ALLISON Results Laboratory List Name Date ALT 02/04/23 AST 02/04/23 CBC w/o Diff 02/04/23 Most recent to oldest [Reference Range]: 1 WBC [4.8-10.8 K/mcL] 5.4 K/mcL (02/04/23 11:34 AM) RBC [4.20-6.10 Million/mcL] 4.37 Million /mcL (02/04/23 11:34 AM) MCV [80.0-94.0 fL] 92.0 fL (02/04/23 11:34 AM) AST [15-41 IntlUnit/L] 29 IntlUnit/L (02/04/23 11:34 AM) ALT [17-63 IntlUnit/L] 28 IntlUnit/L (02/04/23 11:34 AM) MCHC [32.0-36.0 g/dL] 32.3 g/dL (02/04/23 11:34 AM) Hct [42.0-52.0 %] 40.2 % *LOW* (02/04/23 11:34 AM) MCH [27.0-31.0 pg] 29.7 pg (02/04/23 11:34 AM) Hgb [14.0-18.0 g/dL] 13.0 g/dL *LOW* (02/04/23 11:34 AM) MPV [7.4-10.4 fL] 12.3 fL *HI* (02/04/23 11:34 AM) Platelets [130-400 K/mcL] 99 K/mcL *LOW* (02/04/23 11:34 AM) RDW-CV [11.5-14.5 %] 13.2 % (02/04/23 11:34 AM) Patient Care team information Care Team Related Persons Name: CHARLIE WEST
--- OUTSIDE RECORDS SUMMARY | 2023-09-14 15:11 | XMS_ITS | Continuity of Care Document ---
Author Name Unknown Organization [facility] Address [address] [place] [address] Care Team Providers Care Industrial Millwright Name Role Phone Emily Stein Primary Care Physician [phone] Encounter [facility] Date(s): 02/08/23 - 02/08/[address] [address] Discharge Disposition: Home or Self Care Attending Physician: Mykel Swanson NP Admitting Physician: Mykel Swanson NP Referring Physician: Mykel Swanson SUPPLY CHAIN VICE PRESIDENT Allergies, Adverse Reactions, Alerts No Known Medication [...] 4 HOURS, #8.5 g, 3 Refill(s), Pharmacy: [facility] Start Date: 02/07/23 Status: Ordered alfuzosin 10 mg oral tablet, extended release 10 mg = 1 tab, Oral, Daily, after meal, # 90 tab, 3 Refill(s), Pharmacy: [facility] Start Date: 08/04/22 Status: Ordered alfuzosin [...] Daily, # 90 tab, 3 Refill(s), Pharmacy: [facility] Start Date: 11/01/22 Status: Ordered benzonatate 100 mg oral capsule 100 mg = 1 cap, Oral, BID, # 20 cap, 0 Refill(s), Pharmacy: [facility]58 Start Date: 02/08/23 Stop Date: 02/18/23 Status: Ordered Ciprodex 0.3%-0.1% otic suspension 4 drops, Ear-Both, BID, # 7.5 mL, 0 Refill(s), Pharmacy: [facility]58 Start Date: 12/01/22 Stop Date: 12/08/22 Status: Ordered Debrox 6.5% otic solution 5 drops, Ear-Both, BID, Instill 5 drops in affected ear(s) up to twice a day for 5 days to loosen wax, # 30 mL, 1 Refill(s), Pharmacy: [facility]58 Start Date: 06/30/22 Status: Ordered diclofenac 1% topical gel See Instructions, APPLY 2 GRAMS TOPICALLY TO AFFECTED AREA(S) THREE TIMES A DAY NEEDED, # 100 g,3 Refill(s), Pharmacy: [facility] Start Date: 11/01/22 Status: Ordered Enbrel SureClick 50 mg/mL subcutaneous solution 50 mg =, Subcutaneous, every week, # 3.92 mL, 0 Refill(s) Start Date: 05/03/22 Status: Ordered Flovent HFA 110 mcg/inh inhalation aerosol 1 puffs, Inhale, BID, # 36 g, 2 Refill(s), Pharmacy: [facility]58 Start Date: 12/16/22 Status: Ordered folic acid 1 mg oral tablet 1 mg = 1 tab, Oral, Daily, TAKE ONE TABLET BY MOUTH EVERY DAY, # 90 tab, 3 Refill(s), Pharmacy: [facility]58 Start Date: 08/05/22 Status: Ordered HYDROcodone-acetaminophen [...] DAY, # 90 tab, 3 Refill(s), Pharmacy: [facility] Start Date: 08/04/22 Status: Ordered meloxicam 7.5 mg oral tablet 1 tab, Oral, Daily, # 30 tab, 0 Refill(s), Pharmacy: [facility] Start Date: 11/16/22 Status: Ordered meloxicam 7.5 mg oral tablet 7.5 mg = 1 tab, Oral, Daily, # 30 tab, 1 Refill(s), Pharmacy: [facility]58 Start Date: 11/26/22 Status: Ordered Myrbetriq [...] Daily, # 90 cap, 2 Refill(s), Pharmacy: [facility]58 Start Date: 11/01/22 Status: Ordered Oyster Shell Calcium with Vitamin D 500 mg-5 mcg (200 intl units) oral tablet 1 tab, Oral, BID, # 60 tab, 3 Refill(s), Pharmacy: [facility]58 Start Date: 02/04/23 Status: Ordered traZODone 50 mg oral tablet 2 tab, Oral, every night at bedtime, PRN NEEDED, # 180 tab, 1 Refill(s), Pharmacy: [facility]58 Start Date: 01/24/23 Status: Ordered Zithromax Z-Sim 250 mg oral tablet 1 packets, Oral, Daily, Take 2 tablets on day 1 and 1 tablet days 2 through 5 with a quantity of 6., # 6 tab, 0 Refill(s), Pharmacy: [facility]58 Start Date: 02/08/23 Stop Date: 02/13/23 [...] 12/21/12 4bilateral Results Laboratory List Name Date SARS-CoV-2 (COVID-19)/Flu/RSV ([facility] ) 02/08/23 Most recent to oldest [Reference Range]: 1 Employed in healthcare? No *NA* (02/08/23 11:08 AM) Symptomatic as defined by CDC? No *NA* (02/08/23 11:08 AM) Hospitalized due to COVID-19? No *NA* (02/08/23 11:08 AM) In ICU? No *NA* (02/08/23 11:08 AM) Group care resident? No *NA* (02/08/23 11:08 AM) status? Not *NA* (02/08/23 11:08 AM) SARS-CoV-2(Covid19)PCR([facility] COVFLURSV) [Negative] Negative (02/08/23 11:08 AM) Flu A ([facility] COVFLURSV) [Negative] Nega tive (02/08/23 11:08 AM) RSV ([facility] COVFLURSV) [Negative] Negati ve (02/08/23 11:08 AM) Flu B ([facility] COVFLURSV) [Negative] Nega tive (02/08/23 11:08 AM) Social History Social History Type Response Tobacco Never tobacco user T obacco Use:. Sex Male Patient Care team information Care Team Personnel Name: Emily Stein MD Position: Physician Member Role: Primary Care Physician Address: Address: [place] [address]- Care Team Related Persons Name: ERNESTO WEST Address: Home Name: CHARLIE WEST Address: Home Name: SYDNEY WEST
--- OUTSIDE RECORDS SUMMARY | 2023-09-14 15:11 | XMS_ITS | Continuity of Care Document ---
Author Name Unknown Organization [facility] Address [address] [place] [address] Care Team Providers Care Orthotic/Prosthetic Practitioner Name Role Phone Emily Stein Primary Care Physician Encounter [facility] Date(s): 08/20/22 - 08/20/22 [facility] [address] [place] [address] Discharge Disposition: Home or Self Care Attending [...] hr, # 14 tab, 0 Refill(s), Pharmacy: [facility] Start Date: 05/18/22 Stop Date: 05/25/22 [...] meal, # 90 tab, 3 Refill(s), Pharmacy: [facility] Start Date: 08/04/22 Status: Ordered alfuzosin [...] wax, # 30 mL, 1 Refill(s), Pharmacy: [facility]58 Start Date: 06/30/22 Status: Ordered diclofenac 1% topical gel See Instructions, APPLY 2 GRAMS TOPICALLY TO AFFECTED AREA(S) THREE TIMES A DAY NEEDED, # 100 g,3 Refill(s), Pharmacy: [facility]58 Start Date: 07/19/22 Status: Ordered Enbrel [...] DAY, # 90 tab, 3 Refill(s), Pharmacy: [facility]58 Start Date: 08/05/22 Status: Ordered HYDROcodone-acetaminophen [...] DAY, # 90 tab, 3 Refill(s), Pharmacy: [facility]58 Start Date: 08/04/22 Status: Ordered Myrbetriq [...] Daily, # 30 cap, 2 Refill(s), Pharmacy: [facility]58 Start Date: 08/16/22 Status: Ordered Oyster Shell Calcium with Vitamin D 500 mg-5 mcg (200 intl units) oral tablet 1 tab, Oral, BID, # 60 tab, 3 Refill(s), Pharmacy: [facility] Start Date: 06/01/22 Status: Ordered traZODone 50 mg oral tablet 2 tab, Oral, every night at bedtime, PRN NEEDED, # 180 tab, 1 Refill(s), Pharmacy: [facility]58 Start Date: 08/05/22 Status: Ordered Problem [...] Personnel Name: Emily Stein MD Address: Address: [place] [facility] [place], [place] [address]
--- OUTSIDE RECORDS SUMMARY | 2023-09-14 15:11 | XMS_ITS | Continuity of Care Document ---
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 Role Phone Emily Stein Primary Care Physician [phone] Encounter [facility] Date(s): 12/31/22 - 12/31/[address] [address] Discharge Disposition: Home or Self Care Attending [...] aerosol 2 puffs, Inhale, every 4 hr, INHALE TWO PUFFS BY MOUTH EVERY 4 HOURS, # 8 g, 0 Refill(s), Pharmacy:[facility] Start Date: 12/02/22 Status: Ordered alfuzosin 10 mg oral tablet, extended release 10 mg = 1 tab, Oral, Daily, after meal, # 90 tab, 3 Refill(s), Pharmacy: [facility] Start Date: 08/04/22 Status: Ordered alfuzosin [...] Daily, # 90 tab, 3 Refill(s), Pharmacy: [facility] Start Date: 11/01/22 Status: Ordered Ciprodex 0.3%-0.1% otic suspension 4 drops, Ear-Both, BID, # 7.5 mL, 0 Refill(s), Pharmacy: [facility] Start Date: 12/01/22 Stop Date: 12/08/22 Status: Ordered Debrox 6.5% otic solution 5 drops, Ear-Both, BID, Instill 5 drops in affected ear(s) up to twice a day for 5 days to loosen wax, # 30 mL, 1 Refill(s), Pharmacy: [facility] Start Date: 06/30/22 Status: Ordered diclofenac 1% topical gel See Instructions, APPLY 2 GRAMS TOPICALLY TO AFFECTED AREA(S) THREE TIMES A DAY NEEDED, # 100 g,3 Refill(s), Pharmacy: [facility] Start Date: 11/01/22 Status: Ordered Enbrel SureClick 50 mg/mL subcutaneous solution 50 mg =, Subcutaneous, every week, # 3.92 mL, 0 Refill(s) Start Date: 05/03/22 Status: Ordered Flovent HFA 110 mcg/inh inhalation aerosol 1 puffs, Inhale, BID, # 36 g, 2 Refill(s), Pharmacy: [facility] Start Date: 12/16/22 Status: Ordered folic acid 1 mg oral tablet 1 mg = 1 tab, Oral, Daily, TAKE ONE TABLET BY MOUTH EVERY DAY, # 90 tab, 3 Refill(s), Pharmacy: [facility] #58 Start Date: 08/05/22 Status: Ordered HYDROcodone-acetaminophen [...] DAY, # 90 tab, 3 Refill(s), Pharmacy: [facility] Start Date: 08/04/22 Status: Ordered meloxicam 7.5 mg oral tablet 1 tab, Oral, Daily, # 30 tab, 0 Refill(s), Pharmacy: [facility] Start Date: 11/16/22 Status: Ordered meloxicam 7.5 mg oral tablet 7.5 mg = 1 tab, Oral, Daily, # 30 tab, 1 Refill(s), Pharmacy: [facility] #58 Start Date: 11/26/22 Status: Ordered Myrbetriq [...] Daily, # 90 cap, 2 Refill(s), Pharmacy: [facility] Start Date: 11/01/22 Status: Ordered Oyster Shell Calcium with Vitamin D 500 mg-5 mcg (200 intl units) oral tablet 1 tab, Oral, BID, # 60 tab, 3 Refill(s), Pharmacy: [facility] Start Date: 10/11/22 Status: Ordered traZODone 50 mg oral tablet 2 tab, Oral, every night at bedtime, PRN NEEDED, # 180 tab, 1 Refill(s), Pharmacy: [facility] Start Date: 08/05/22 Status: Ordered Problem [...] 12/21/12 4bilateral Results Laboratory List Name Date Lipid Panel 12/31/22 Most recent to oldest [Reference Range]: 1 Cholesterol Total [50-200 mg/dL] 130 mg/ dL (12/31/22 8:00 AM) LDL [0-130 mg/dL] 66 mg/dL (12/31/22 8:00 AM) HDL [40-60 mg/dL] 55 mg/dL (12/31/22 8:00 AM) Triglycerides [0-150 mg/dL] 44 mg/dL (12/31/22 8:00 AM) Social History Social History Type Response Tobacco Never tobacco user T obacco Use:. Sex Male Patient Care team information Care Team Personnel Name: Emily Stein MD Position: Physician Member Role: Primary Care Physician Address: Address: [facility] [place], [place] [address] [place] [address] Care Team Related Persons Name: ERNESTO WEST Address: Home Name: CHARLIE WEST Address: Home
--- OUTSIDE RECORDS SUMMARY | 2023-09-14 15:11 | XMS_ITS | Continuity of Care Document ---
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 Role Phone Emily Stein Primary Care Physician [phone] Encounter [facility] Date(s): 08/23/22 - 08/23/[address] [address] Discharge Disposition: Home or Self Care Attending Physician: Jose Alberto Goodwin Admitting Physician: Jose Alberto Goodwin Referring Physician: Jose Alberto Goodwin Allergies, Adverse Reactions, Alerts No Known Medication Allergies Assessment and Plan Future Appointments Diagnostic Tests Pending * Generic Orderable [facility] 08/23/22 Immunizations Given and Recorded Vaccine Date Status [...] hr, # 14 tab, 0 Refill(s), Pharmacy: [facility] Start Date: 05/18/22 Stop Date: 05/25/22 [...] meal, # 90 tab, 3 Refill(s), Pharmacy: [facility] Start Date: 08/04/22 Status: Ordered alfuzosin [...] wax, # 30 mL, 1 Refill(s), Pharmacy: [facility] Start Date: 06/30/22 Status: Ordered diclofenac 1% topical gel See Instructions, APPLY 2 GRAMS TOPICALLY TO AFFECTED AREA(S) THREE TIMES A DAY NEEDED, # 100 g,3 Refill(s), Pharmacy: [facility] Start Date: 07/19/22 Status: Ordered Enbrel [...] DAY, # 90 tab, 3 Refill(s), Pharmacy: [facility] Start Date: 08/05/22 Status: Ordered HYDROcodone-acetaminophen [...] DAY, # 90 tab, 3 Refill(s), Pharmacy: [facility] Start Date: 08/04/22 Status: Ordered Myrbetriq [...] Daily, # 30 cap, 2 Refill(s), Pharmacy: [facility] Start Date: 08/16/22 Status: Ordered Oyster Shell Calcium with Vitamin D 500 mg-5 mcg (200 intl units) oral tablet 1 tab, Oral, BID, # 60 tab, 3 Refill(s), Pharmacy: [facility]58 Start Date: 06/01/22 Status: Ordered traZODone 50 mg oral tablet 2 tab, Oral, every night at bedtime, PRN NEEDED, # 180 tab, 1 Refill(s), Pharmacy: [facility] Start Date: 08/05/22 Status: Ordered Problem [...] Results Laboratory List Name Date Automated Diff 08/23/22 CBC w/ Diff 08/23/22 Comprehensive Metabolic Panel 08/23/22 Ferritin 08/23/22 Folate Level 08/23/22 GGT 08/23/22 Reticulocyte Count Automated 08/23/22 Vitamin B12 Level 08/23/22 Most recent to oldest [Reference Range]: 1 WBC [5.0-10.0 x10^3/mcL] 4.7 x10^3/mcL *LOW* (08/23/22 8:06 AM) RBC [4.6-6.0 x10^6/mcL] 4.8 x10^6/mcL (08/23/22 8:06 AM) Neutro Auto [40.0-75.0 %] 42.6 % (08/23/22 8:06 AM) Lymph Auto [20.0-50.0 %] 42.7 % (08/23/22 8:06 AM) Wilbarger Auto [2.0-15.0 %] 11.6 % (08/23/22 8:06 AM) Basophil Auto [0.0-1.0 %] 0.4 % (08/23/22 8:06 AM) BUN [7-18 mg/dL] 19 mg/dL *HI* (08/23/22 8:06 AM) Glucose Level [74-106 mg/dL] 99 mg/dL (08/23/22 8:06 AM) Potassium Level [3.5-5.1 mmol/L] 4.2 mmo l/L (08/23/22 8:06 AM) MCV [80.0-103.0 fL] 90.8 fL (08/23/22 8:06 AM) AST [15-37 unit/L] 20 unit/L (08/23/22 8:06 AM) ALT [14-59 unit/L] 28 unit/L (08/23/22 8:06 AM) MCHC [31.0-35.0 g/dL] 32.9 g/dL (08/23/22 8:06 AM) Sodium Level [136-145 mmol/L] 138 mmol/L (08/23/22 8:06 AM) Folate Level [8.6-58.9 ng/mL] 87.7 ng/mL *HI* (08/23/22 8:06 AM) Hct [41.0-51.0 %] 43.4 % (08/23/22 8:06 AM) Calcium Level [8.5-10.1 mg/dL] 9.3 mg/dL (08/23/22 8:06 AM) Albumin Level [3.4-5.0 g/dL] 4.2 g/dL (08/23/22 8:06 AM) Protein Total [6.4-8.2 g/dL] 8.2 g/dL (08/23/22 8:06 AM) MCH [26.0-32.0 pg] 29.9 pg (08/23/22 8:06 AM) Neutro Absolute 2.0 x10^3/mcL *NA* (08/23/22 8:06 AM) Bilirubin Total [0.2-1.0 mg/dL] 0.8 mg/d L (08/23/22 8:06 AM) Hgb [14.0-18.0 g/dL] 14.3 g/dL (08/23/22 8:06 AM) B12 Level [193-986 pg/mL] 3201 pg/mL *HI* (08/23/22 8:06 AM) Alk Phos [46-146 unit/L] 60 unit/L (08/23/22 8:06 AM) Ferritin Level [26-388 ng/mL] 663 ng/mL *HI* (08/23/22 8:06 AM) Platelets [130-450 x10^3/mcL] 104 x10^3/ mcL *LOW* (08/23/22 8:06 AM) CO2 [21-32 mmol/L] 29 mmol/L (08/23/22 8:06 AM) Reticulocyte % [0.5-2.4 %] 1.0 % (08/23/22 8:06 AM) GGT [15-85 unit/L] 24 unit/L (08/23/22 8:06 AM) eGFR Non-AA [>=60] 79 (08/23/22 8:06 AM) eGFR AA [>=60] 79 (08/23/22 8:06 AM) Chloride Level [98-107 mmol/L] 101 mmol/ L (08/23/22 8:06 AM) RDW-CV [11.5-17.0 %] 13.3 % (08/23/22 8:06 AM) Imm Gran Auto [0.0-0.9 %] 0.2 % (08/23/22 8:06 AM) Creatinine Level [0.70-1.30 mg/dL] 1.09 mg/dL (08/23/22 8:06 AM) Anion Gap [8-16 mmol/L] 8 mmol/L (08/23/22 8:06 AM) Eos, Auto [1.0-6.0 %] 2.5 % (08/23/22 8:06 AM) Social History Social History Type Response Tobacco Never tobacco user T obacco Use:. Sex Male Patient Care team information Personnel Name: Emily Stein MD Address: Address: [place] [address] [place]
--- OUTSIDE RECORDS SUMMARY | 2023-09-14 15:11 | XMS_ITS | Continuity of Care Document ---
Author Name Unknown Organization [facility] Address [address] [place] [address] Care Team Providers Care Twisting Department End Finder Name Role Phone Emily Stein Primary Care Physician Encounter [facility] Date(s): 04/27/23 - 04/27/[address] [address] Discharge Disposition: Home or Self Care Attending [...] 4 HOURS, #8.5 g, 3 Refill(s), Pharmacy: [facility]58 Start Date: 04/04/23 Status: Ordered alfuzosin 10 mg oral tablet, extended release 10 mg = 1 tab, Oral, Daily, after meal, # 90 tab, 3 Refill(s), Pharmacy: [facility] #58 Start Date: 08/04/22 Status: Ordered [...] Daily, # 90 tab, 3 Refill(s), Pharmacy: [facility]58 Start Date: 11/01/22 Status: Ordered benzonatate 100 mg oral capsule 100 mg = 1 cap, Oral, BID, # 20 cap, 0 Refill(s), Pharmacy: [facility]58 Start Date: 02/08/23 Stop Date: 02/18/23 Status: Ordered Ciprodex 0.3%-0.1% otic suspension 4 drops, Ear-Both, BID, # 7.5 mL, 0 Refill(s), Pharmacy: [facility] #58 Start Date: 12/01/22 Stop Date: 12/08/22 Status: Ordered Debrox 6.5% otic solution 5 drops, Ear-Both, BID, Instill 5 drops in affected ear(s) up to twice a day for 5 days to loosen wax, # 30 mL, 1 Refill(s), Pharmacy: [facility] #58 Start Date: 06/30/22 Status: Ordered diclofenac 1% topical gel 2 g, Topical, TID, PRN NEEDED, # 100 g, 6 Refill(s), Pharmacy: [facility] #58 Start Date: 02/28/23 Status: Ordered Enbrel SureClick 50 mg/mL subcutaneous solution 50 mg =, Subcutaneous, every week, # 3.92 mL, 0 Refill(s) Start Date: 05/03/22 Status: Ordered Flovent HFA 110 mcg/inh inhalation aerosol 1 puffs, Inhale, BID, # 36 g, 2 Refill(s), Pharmacy: [facility] #58 Start Date: 12/16/22 Status: Ordered folic acid 1 mg oral tablet 1 mg = 1 tab, Oral, Daily, TAKE ONE TABLET BY MOUTH EVERY DAY, # 90 tab, 3 Refill(s), Pharmacy: [facility]58 Start Date: 08/05/22 Status: Ordered [...] DAY, # 90 tab, 3 Refill(s), Pharmacy: [facility] Start Date: 08/04/22 Status: Ordered [...] Daily, # 90 cap, 2 Refill(s), Pharmacy: [facility] Start Date: 11/01/22 Status: Ordered Oyster Shell Calcium with Vitamin D 500 mg-5 mcg (200 intl units) oral tablet 1 tab, Oral, BID, # 60 tab, 3 Refill(s), Pharmacy: [facility]58 Start Date: 02/04/23 Status: Ordered traZODone 50 mg oral tablet 2 tab, Oral, every night at bedtime, PRN NEEDED, # 180 tab, 1 Refill(s), Pharmacy: [facility]58 Start Date: 01/24/23 Status: Ordered Zithromax Z-Sim 250 mg oral tablet 1 packets, Oral, Daily, Take 2 tablets on day 1 and 1 tablet days 2 through 5 with a quantity of 6., # 6 tab, 0 Refill(s), Pharmacy: [facility]58 Start Date: 02/08/23 Stop Date: 02/13/23 [...] Results Laboratory List Name Date Automated Diff 04/27/23 CBC w/ Diff 04/27/23 Comprehensive Metabolic Panel (CMP) Most recent to oldest [Reference Range]: 1 WBC [5.0-10.0 x10^3/mcL] 6.1 x10^3/mcL (04/27/23 3:03 PM) RBC [4.6-6.0 x10^6/mcL] 4.4 x10^6/mcL *LOW* (04/27/23 3:03 PM) Neutro Auto [40.0-75.0 %] 47.7 % (04/27/23 3:03 PM) Lymph Auto [20.0-50.0 %] 37.6 % (04/27/23 3:03 PM) Ward Auto [2.0-15.0 %] 10.3 % (04/27/23 3:03 PM) Basophil Auto [0.0-1.0 %] 0.3 % (04/27/23 3:03 PM) BUN [7-18 mg/dL] 14 mg/dL (04/27/23 3:03 PM) Glucose Level [74-106 mg/dL] 109 mg/dL *HI* (04/27/23 3:03 PM) Potassium Level [3.5-5.1 mmol/L] 4.1 mmo l/L (04/27/23 3:03 PM) MCV [80.0-96.0 fL] 93.8 fL (04/27/23 3:03 PM) AST [15-37 unit/L] 15 unit/L (04/27/23 3:03 PM) ALT [16-63 unit/L] 31 unit/L (04/27/23 3:03 PM) MCHC [31.0-35.0 g/dL] 31.7 g/dL (04/27/23 3:03 PM) Sodium Level [136-145 mmol/L] 139 mmol/L (04/27/23 3:03 PM) Hct [41.0-51.0 %] 41.0 % (04/27/23 3:03 PM) Calcium Level [8.5-10.1 mg/dL] 9.0 mg/dL (04/27/23 3:03 PM) Albumin Level [3.4-5.0 g/dL] 4.0 g/dL (04/27/23 3:03 PM) Protein Total [6.4-8.2 g/dL] 7.5 g/dL (04/27/23 3:03 PM) MCH [26.0-32.0 pg] 29.7 pg (04/27/23 3:03 PM) Neutro Absolute 2.9 x10^3/mcL *NA* (04/27/23 3:03 PM) Bilirubin Total [0.2-1.0 mg/dL] 0.3 mg/d L (04/27/23 3:03 PM) Hgb [14.0-18.0 g/dL] 13.0 g/dL *LOW* (04/27/23 3:03 PM) Alk Phos [46-146 unit/L] 60 unit/L (04/27/23 3:03 PM) Platelets [130-450 x10^3/mcL] 91 x10^3/m cL *LOW* (04/27/23 3:03 PM) CO2 [21-32 mmol/L] 30 mmol/L (04/27/23 3:03 PM) eGFR Non-AA [>=60] 73 (04/27/23 3:03 PM) eGFR AA [>=60] 73 (04/27/23 3:03 PM) Chloride Level [98-107 mmol/L] 104 mmol/ L (04/27/23 3:03 PM) RDW-CV [11.5-14.5 %] 13.4 % (04/27/23 3:03 PM) Imm Gran Auto [0.0-0.9 %] 0.2 % (04/27/23 3:03 PM) Creatinine Level [0.70-1.30 mg/dL] 1.16 mg/dL (04/27/23 3:03 PM) Eos, Auto [1.0-6.0 %] 3.9 % (04/27/23 3:03 PM) Social History Social History Type Response Tobacco Never tobacco user T obacco Use:. Sex Male Patient Care team information Care Team Personnel Name: Emily Stein MD Position: Physician Member Role: Primary Care Physician Address: Address: [place] [address]- Care Team Related Persons Name: ERNESTO WEST Address: Home Name: CHARLIE WEST Address: Home Name: SYDNEY WEST Address: [place]
--- OUTSIDE RECORDS SUMMARY | 2023-09-14 15:11 | XMS_ITS | Continuity of Care Document ---
Author Name Unknown Organization [facility] Address [address] [place] [address] Care Team Providers Care Vice President Of Operations Name Role Phone Emily Stein Primary Care Physician [phone] Encounter [facility] Date(s): 03/07/23 - 03/07/[address] [address] Discharge Disposition: Home or Self Care Attending [...] 4 HOURS, #8.5 g, 3 Refill(s), Pharmacy: [facility] Start Date: 02/07/23 Status: Ordered alfuzosin 10 mg oral tablet, extended release 10 mg = 1 tab, Oral, Daily, after meal, # 90 tab, 3 Refill(s), Pharmacy: [facility] Start Date: 08/04/22 Status: Ordered alfuzosin [...] Daily, # 90 tab, 3 Refill(s), Pharmacy: [facility] Start Date: 11/01/22 Status: Ordered benzonatate 100 mg oral capsule 100 mg = 1 cap, Oral, BID, # 20 cap, 0 Refill(s), Pharmacy: [facility] Start Date: 02/08/23 Stop Date: 02/18/23 Status: Ordered Ciprodex 0.3%-0.1% otic suspension 4 drops, Ear-Both, BID, # 7.5 mL, 0 Refill(s), Pharmacy: [facility] Start Date: 12/01/22 Stop Date: 12/08/22 Status: Ordered Debrox 6.5% otic solution 5 drops, Ear-Both, BID, Instill 5 drops in affected ear(s) up to twice a day for 5 days to loosen wax, # 30 mL, 1 Refill(s), Pharmacy: [facility] Start Date: 06/30/22 Status: Ordered diclofenac 1% topical gel 2 g, Topical, TID, PRN NEEDED, # 100 g, 6 Refill(s), Pharmacy: [facility] Start Date: 02/28/23 Status: Ordered Enbrel SureClick 50 mg/mL subcutaneous solution 50 mg =, Subcutaneous, every week, # 3.92 mL, 0 Refill(s) Start Date: 05/03/22 Status: Ordered Flovent HFA 110 mcg/inh inhalation aerosol 1 puffs, Inhale, BID, # 36 g, 2 Refill(s), Pharmacy: [facility] Start Date: 12/16/22 Status: Ordered folic acid 1 mg oral tablet 1 mg = 1 tab, Oral, Daily, TAKE ONE TABLET BY MOUTH EVERY DAY, # 90 tab, 3 Refill(s), Pharmacy: [facility] Start Date: 08/05/22 Status: Ordered HYDROcodone-acetaminophen [...] DAY, # 90 tab, 3 Refill(s), Pharmacy: [facility] Start Date: 08/04/22 Status: Ordered meloxicam 7.5 mg oral tablet 1 tab, Oral, Daily, # 30 tab, 0 Refill(s), Pharmacy: [facility] Start Date: 11/16/22 Status: Ordered meloxicam 7.5 mg oral tablet 7.5 mg = 1 tab, Oral, Daily, # 30 tab, 1 Refill(s), Pharmacy: [facility] Start Date: 02/14/23 Status: Ordered Myrbetriq [...] Daily, # 90 cap, 2 Refill(s), Pharmacy: [facility] Start Date: 11/01/22 Status: Ordered Oyster Shell Calcium with Vitamin D 500 mg-5 mcg (200 intl units) oral tablet 1 tab, Oral, BID, # 60 tab, 3 Refill(s), Pharmacy: [facility] Start Date: 02/04/23 Status: Ordered traZODone 50 mg oral tablet 2 tab, Oral, every night at bedtime, PRN NEEDED, # 180 tab, 1 Refill(s), Pharmacy: [facility] Start Date: 01/24/23 Status: Ordered Zithromax Z-Sim 250 mg oral tablet 1 packets, Oral, Daily, Take 2 tablets on day 1 and 1 tablet days 2 through 5 with a quantity of 6., # 6 tab, 0 Refill(s), Pharmacy: [facility] Start Date: 02/08/23 Stop Date: 02/13/23 [...] Results Laboratory List Name Date Lipid Panel 03/07/23 Most recent to oldest [Reference Range]: 1 Cholesterol Total [50-200 mg/dL] 132 mg/ dL (03/07/23 8:10 AM) LDL [0-130 mg/dL] 78 mg/dL (03/07/23 8:10 AM) HDL [40-60 mg/dL] 46 mg/dL (03/07/23 8:10 AM) Triglycerides [0-150 mg/dL] 42 mg/dL (03/07/23 8:10 AM) Social History Social History Type Response Tobacco Never tobacco user T obacco Use:. Sex Male Patient Care team information Care Team Personnel Name: Emily Stein MD Position: Physician Member Role: Primary Care Physician Address: Address: [place] [address]- Care Team Related Persons Name: ERNESTO WEST Address: Home Name: CHARLIE WEST Address: Home Name: SYDNEY WEST
== END ==
PROVIDERS: PCP Family Medicine; Visit Provider Podiatrist
DX: M20.42 Other hammer toe(s) (acquired), left foot (principal); M20.41 Other hammer toe(s) (acquired), right foot
CPT/HCPCS: 73630

== ENCOUNTER → 2023-10-05 09:32 | Outpatient (BNVA) | payer MEDICARE, MEDICAID, SELFPAY | PROVIDERS: PCP Family Medicine; Referring Provider Family Medicine; Visit Provider Podiatrist | DX: M20.42 Other hammer toe(s) (acquired), left foot (principal); M20.41 Other hammer toe(s) (acquired), right foot; M77.42 Metatarsalgia, left foot; L84 Corns and callosities; M67.01 Short Achilles tendon (acquired), right ankle; M67.02 Short Achilles tendon (acquired), left ankle | CPT/HCPCS: 99213 ==

== ENCOUNTER → 2024-05-28 10:33 | Outpatient (BNVA) | payer MEDICARE, MEDICAID, SELFPAY | PROVIDERS: PCP Family Medicine; Referring Provider Family Medicine; Visit Provider Nurse Practitioner Gerontology | DX: N39.8 Other specified disorders of urinary system (principal) | CPT/HCPCS: 51798; 81003; 99204 ==

== ENCOUNTER → 2024-06-12 10:04 | Outpatient (BNVA) | payer MEDICARE, MEDICAID, SELFPAY | PROVIDERS: PCP Family Medicine; Referring Provider Family Medicine; Visit Provider Nurse Practitioner Gerontology | DX: N39.8 Other specified disorders of urinary system (principal); R30.0 Dysuria | CPT/HCPCS: 51798; 81003; 99213 ==

== ENCOUNTER 2024-06-12 16:09 | Outpatient (REF) | payer MEDICARE, MEDICAID, SELFPAY | END 2024-06-12 16:10 | disposition home or self-care (01) | LOC: LBN 16:09 | PROVIDERS: PCP Family Medicine; Visit Provider Nurse Practitioner Gerontology | DX: R30.0 Dysuria (principal) | CPT/HCPCS: 87077; 87086; 87186 ==

== ENCOUNTER → 2024-07-03 10:34 | Outpatient (BNVA) | payer MEDICARE, MEDICAID, SELFPAY | PROVIDERS: PCP Family Medicine; Referring Provider Family Medicine; Visit Provider Nurse Practitioner Gerontology | DX: N39.0 Urinary tract infection, site not specified (principal); N39.8 Other specified disorders of urinary system; R30.0 Dysuria | CPT/HCPCS: 99442 ==

== ENCOUNTER 2024-07-09 19:49 | Outpatient (REF) | payer MEDICARE, MEDICAID, SELFPAY ==
[2024-07-09 11:58] LABS: Bilirubin Negative (Negative); Blood Negative (Negative); Clarity Clear (Clear); Glucose Negative (Negative); Ketones Negative (Negative); Leukocyte Esterase Negative (Negative); Nitrite Negative (Negative); Specific Gravity 1.025 (1.005-1.025); Urobilinogen 0.2 mg/dL (Up to 0.2)
== END 2024-07-09 19:50 | disposition home or self-care (01) ==
LOC: LBN 19:49
PROVIDERS: PCP Family Medicine; Referring Provider Nurse Practitioner Gerontology; Visit Provider Nurse Practitioner Gerontology
DX: N39.8 Other specified disorders of urinary system (principal); R30.0 Dysuria
CPT/HCPCS: 81003; 87086